=== PATIENT | female | born 1975 | race Native Hawaiian/Other Pacific Islander ===

== ENCOUNTER 2018-01-15 11:08 | Outpatient (CLI) | payer OTHER | END 2018-01-15 23:18 | disposition home or self-care (01) | LOC: MAMMO 11:08 | DX: N63.20 Unspecified lump in the left breast, unspecified quadrant (principal); Z12.39 Encounter for other screening for malignant neoplasm of breast ==

== ENCOUNTER 2018-06-15 11:10 | Emergency (ER) | payer OTHER ==
[~2018-06-15] VITALS: Ht 167.6 cm; Wt 44.6 kg
[2018-06-15 11:26] VITALS: TEMP 98.4
[2018-06-15 11:54] LABS: PLATELET COUNT 192 K/uL (152-353)
[2018-06-15 15:48] VITALS: BP 128/98
== END 2018-06-15 15:49 | disposition home or self-care (01) ==
LOC: ED 11:10
DX: Q45.3 Other congenital malformations of pancreas and pancreatic duct (principal)
CPT/HCPCS: 36415; 80053; 81000; 82150; 83690; 85027; 96374; 96375; 99284; J1885; J2405; Q9963

== ENCOUNTER 2018-06-30 09:18 | Outpatient (CLI) | payer OTHER | END 2018-06-30 21:02 | disposition home or self-care (01) | LOC: LABW 09:18 | DX: K59.1 Functional diarrhea (principal) | CPT/HCPCS: 82705; 83630; 87015; 87045; 87324; 87328; 87329; 87449; 87899 ==

== ENCOUNTER 2018-11-05 12:52 | Outpatient (CLI) | payer OTHER | END 2018-11-05 19:20 | disposition home or self-care (01) | LOC: MAMMO 12:52 | DX: N64.89 Other specified disorders of breast (principal) ==

== ENCOUNTER 2021-01-19 09:57 | Outpatient (CLI) | payer OTHER | END 2021-01-19 23:06 | disposition home or self-care (01) | LOC: MAMMO 09:57 | PROVIDERS: ATTEND Internal Medicine | DX: Z12.31 Encounter for screening mammogram for malignant neoplasm of breast (principal) ==

== ENCOUNTER 2022-08-31 14:35 | Inpatient (IN) | payer BC ==
[~2022-08-31] VITALS: Ht 167.6 cm; Wt 73.6 kg
[2022-08-31] VITALS (7 sets, daily range): BP systolic 99–133; BP diastolic 62–79; TEMP 97.4–98; Ht 167.6 cm; Wt 73.6 kg
[2022-08-31 15:40] LABS: PLATELET COUNT 218 K/uL (152-353)
[2022-08-31 15:46] LABS: POTASSIUM 3.4 mmol/L (3.6-5.2); SODIUM 134 mmol/L (136-145)
[2022-09-01] VITALS: BP 117/69; TEMP 98.7
[2022-09-01 04:00] VITALS: BP 95/60; TEMP 98.8
[2022-09-01 05:46] LABS: PLATELET COUNT 189 K/uL (152-353); POTASSIUM 3.1 mmol/L (3.6-5.2)
[2022-09-01 08:00] VITALS: BP 133/79; TEMP 98.3
[2022-09-01] MEDS ORDERED: LISI20TA11 PO (10:41)
[2022-09-01] MEDS ORDERED: ESTR1TAB13 PO (10:42)
[2022-09-01] MEDS ORDERED: LISI20TA31 PO (10:46)
[2022-09-01 12:00] VITALS: BP 104/75; TEMP 98.6
[2022-09-01 16:00] VITALS: BP 11/74; TEMP 98.8
[2022-09-01 20:00] VITALS: BP 119/75; TEMP 98.08
[2022-09-02] VITALS (7 sets, daily range): BP systolic 107–146; BP diastolic 73–85; TEMP 97.7–98.7
[2022-09-02 07:25] LABS: POTASSIUM 3.7 mmol/L (3.6-5.2)
[2022-09-02 07:38] LABS: PLATELET COUNT 187 K/uL (152-353)
[2022-09-03 03:32] VITALS: BP 108/68; TEMP 97.9
[2022-09-03 07:55] VITALS: BP 121/81; TEMP 97.7
[2022-09-03 12:00] VITALS: BP 154/101; TEMP 97.9
[2022-09-03 14:45] LABS: PLATELET COUNT 213 K/uL (152-353)
[2022-09-03 14:54] LABS: POTASSIUM 3.9 mmol/L (3.6-5.2)
[2022-09-03 16:00] VITALS: BP 138/84; TEMP 98.3
[2022-09-03 20:00] VITALS: BP 165/99; TEMP 98.4
[2022-09-03 23:32] VITALS: BP 128/83; TEMP 98.5
[2022-09-04 03:43] VITALS: BP 123/78; TEMP 98.4
[2022-09-04 04:30] LABS: PLATELET COUNT 227 K/uL (152-353)
[2022-09-04 08:00] VITALS: BP 131/81; TEMP 97.6
[2022-09-04 12:00] VITALS: BP 134/95; TEMP 97.7
[2022-09-04] MEDS ORDERED: HYDR5TAB9 PO (13:29)
[2022-09-04] MEDS ORDERED: CIPR500T PO (13:29)
[2022-09-04] MEDS ORDERED: METR250T19 PO (13:30)
[2022-09-04] MEDS ORDERED: PROM25TA52 PO (13:30)
== END 2022-09-04 15:18 | disposition home or self-care (01) | DRG 392 ==
LOC: ED 14:35 → MED/SURG 18:25 → UNDODEPER 09-02 19:40 → MED/SURG 09-04 15:18
PROVIDERS: Emergency Medicine; Internal Medicine; Internal Medicine Endocrinology, Diabetes & Metabolism; ADMIT Internal Medicine; ATTEND Internal Medicine
DX: K57.92 Diverticulitis of intestine, part unspecified, without perforation or abscess without bleeding (principal); E87.6 Hypokalemia; I10 Essential (primary) hypertension; I95.89 Other hypotension
CPT/HCPCS: 36415; 80048; 80053; 81002; 83735; 83880; 84484; 85027; 85379; 87502; 87635; 93005; 96361; 96365; 96367; 96375; 96376; 99284; J0696; J0744; J1170; J2175; J2405; J3490; Q9963; U0003

== ENCOUNTER 2023-02-14 07:18 | Emergency (ER) | payer BC ==
[~2023-02-14] VITALS: Ht 167.6 cm; Wt 72.1 kg
[~2023-02-14 07:18] MED LIST: CIPR500T PO; ESTR1TAB13 PO; HYDR5TAB9 PO; LISI20TA11 PO; LISI20TA31 PO; METR250T19 PO; PROM25TA52 PO
[2023-02-14 07:25] VITALS: BP 130/64; TEMP 98.6
[2023-02-14 08:03] LABS: PLATELET COUNT 228 K/uL (152-353)
[2023-02-14 08:13] LABS: POTASSIUM 3.9 mmol/L (3.6-5.2)
== END 2023-02-14 11:37 | disposition home or self-care (01) ==
LOC: ED 07:18
PROVIDERS: Family Medicine
DX: R10.84 Generalized abdominal pain (principal); K21.9 Gastro-esophageal reflux disease without esophagitis
CPT/HCPCS: 80053; 81000; 82150; 83690; 85027; 99283